=== PATIENT | female | born 1940 | race Caucasian/White ===

== ENCOUNTER 2019-03-02 13:06 | Outpatient (CLI) | payer MEDICARE, BC ==
--- NOTE | 2019-03-02 13:32 | RAD ---
XR Knee Rt 4 View STANDARD HISTORY: Right knee pain, recently fell FINDINGS: No fracture or dislocation is identified. 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 No nathalie hardware lucency is seen to suggest loosening.
== END 2019-03-02 13:07 | disposition home or self-care (01) ==
LOC: TBSIIMAG 13:06
PROVIDERS: ATTEND Neurological Surgery
DX: M25.561 Pain in right knee (principal); Z96.651 Presence of right artificial knee joint